=== PATIENT | male | born 1955 | race Caucasian/White ===

== ENCOUNTER 2017-04-01 12:02 | Emergency (ER) | payer MEDICARE, MEDICAID ==
[~2017-04-01] VITALS: Wt 86.0 kg
[~2017-04-01 12:02] MED LIST: BENACAR; CARI350T; CLON-412; DIDN'T BRING MEDS; DUTA0.5C; FLOMAX; HYDR-3612; HYDR-580; OLME20TA20; SERT100T; SIMV20TA2; SOMA; TAMS-14
[2017-04-01] MEDS ORDERED: ONDANSETRON (ODT) 4 MG TAB ODT STA (13:10)
[2017-04-01] MEDS ORDERED: HYDROCODONE/APAP (10/325) TAB PO ONE (13:30)
[2017-04-01] MEDS ORDERED: IBUPROFEN 800 MG TAB PO ONE (13:30)
[2017-04-01] MEDS ORDERED: IBUP800T25 PO (14:07)
[2017-04-01] MEDS ORDERED: HYDR-902 PO (14:07)
--- NOTE | 2017-04-01 14:13 | ERD ---
ER Documentation Chief Complaint Date/Time DATE: 04/01/17 TIME: 14:10 Chief Complaint RIGHT WRIST PAIN X1DAY S/P DOOR HITTING ARM HPI 61-year-old wheelchair dependent male who presents the emergency room with right wrist pain. The patient states that yesterday a door was closed on his right wrist. He had blunt trauma to the ulnar aspect of the right wrist and now has mild swelling and pain. He is right-hand dominant. Pain is moderate and only slightly alleviated with Motrin. ROS All systems reviewed and are negative except as per history of present illness. Medications Home Meds Active Scripts Hydrocodone/Acetaminophen (Boss 10-325 Tablet) 1 Each Tablet, 1 TAB PO Q6H Y for PAIN, #7 TAB Prov:EMELYN MEREDITH MD 04/01/17 Ibuprofen* (Motrin*) 800 Mg Tab, 800 MG PO Q6H Y for PAIN AND OR ELEVATED TEMP, #30 TAB Prov:EMELYN MEREDITH MD 04/01/17 Reported Medications [Didn't Bring Meds ] No Conflict Check 04/05/13 Hydrocodone Bit-Acetaminophen (Boss) 1 Tab Tablet 05/26/10 Carisoprodol* (Soma*) 350 Mg Tablet 05/26/10 Clonazepam* (Klonopin*) 1 Mg Tablet 05/26/10 Simvastatin (Simvastatin) 20 Mg Tablet 05/26/10 Sertraline Hcl* (Zoloft*) 100 Mg Tablet 05/26/10 Dutasteride* (Avodart*) 0.5 Mg Capsule 05/26/10 Tamsulosin Hcl* (Flomax*) 0.4 Mg Cap.sr.24h 05/26/10 Olmesartan Medoxomil (Benicar) 20 Mg Tablet 05/26/10 Clonazepam* (Klonopin*) 1 Mg Tablet 04/12/10 Sertraline Hcl* (Zoloft*) 100 Mg Tablet 04/12/10 Tamsulosin Hcl* (Flomax*) 0.4 Mg Cap.sr.24h 04/12/10 Dutasteride* (Avodart*) 0.5 Mg Capsule 04/12/10 Benacar 04/12/10 Sertraline Hcl* (Zoloft*) 100 Mg Tablet 04/12/10 Flomax 04/12/10 Soma 04/12/10 Hydrocodone Bit-Acetaminophen* (Boss*) 1 Tab Tab 04/12/10 Allergies Allergies: Coded Allergies: Penicillins (Verified Allergy, Severe, anaphylactic shock, 04/05/13) Uncoded Allergies: bee stings (Allergy, Mild, 05/27/10) PMhx/Soc History of Surgery: No (s/p R shoulder sx) Anesthesia Reaction: No Hx Neurological Disorder: No Hx Respiratory Disorders: Yes (COPD) Hx Cardiac Disorders: No Hx Psychiatric Problems: Yes (BIPOLAR) Hx Miscellaneous Medical Probl: Yes (COPD, HTN,OA) Hx Alcohol Use: No Hx Substance Use: No Hx Tobacco Use: No Smoking Status: Never smoker FmHx Family History: No diabetes Physical Exam Vitals Vital Signs Date Time Temp Pulse Resp B/P Pulse Ox O2 Delivery O2 Flow Rate FiO2 04/01/17 12:08 97.7 65 19 108/64 98 Physical Exam General: Well developed, well nourished, no acute distress Head: Normocephalic, atraumatic. Eyes: EOM intact ENT: Moist mucous membranes Neck: Full ROM Respiratory: No respiratory distress Cardiovascular: Good capillary refil Abdominal: Nondistended : Deferred MSK: Mild soft tissue swelling and tenderness to the distal ulna, no snuffbox tenderness. 5 out of 5 hand document reviewer strength, normal pronation and supination, 2+ radial and ulnar pulses. Neurologic: Alert and oriented, moving all extremities, normal speech, steady gait Skin: No rash Psych: Normal mood Results 24 hrs Current Medications Medications (Trade) Dose Ordered Sig/Fuentes Route PRN Reason Start Time Stop Time Status Last Admin Dose Admin Acetaminophen/ Hydrocodone Bitart (Boss ()) 1 tab ONCE ONCE PO 04/01/17 13:30 04/01/17 13:31 DC 04/01/17 13:29 Ondansetron HCl (Zofran Odt) 4 mg ONCE STAT ODT 04/01/17 13:10 04/01/17 13:13 DC 04/01/17 13:29 Ibuprofen (Motrin) 800 mg ONCE ONCE PO 04/01/17 13:30 04/01/17 13:31 DC 04/01/17 13:29 Procedures/MDM EKG, MONITORS, & DIAGNOSTIC IMAGING: X-ray right wrist: I reviewed and interpreted multiple views of the x-ray Bones: Possible subacute fracture of the ulnar styloid, otherwise no acute fractures dislocations or subluxations Soft tissue: No evidence of foreign body X-ray right hand: I reviewed and interpreted multiple views of the x-ray Bones: Possible subacute fracture of the ulnar styloid otherwise no acute fractures dislocations or subluxations Soft tissue: No evidence of foreign body PROCEDURES: Splint Application Note: Splint type: Ulnar gutter, Ortho-Glass, fabricated Extremity: Right wrist Indication: Possible closed ulnar styloid fracture The patient was consented at bedside prior to splint application and states understanding of risks, benefits, and alternatives. The patient was neurovascularly intact prior to and status post application of the splint. The patient tolerated the procedure well and there were no complications. MEDICAL DECISION MAKING: Patient presents with blunt trauma to the right wrist. The patient has tenderness to the distal ulna. X-ray imaging appropriate ER COURSE: X-ray shows possible subacute fracture to the ulnar styloid however given the location of tenderness is there I believe immobilization with outpatient orthopedic follow-up would be most appropriate repletion placed in a splint as documented above. Pain medication provided. I kept the patient and/or family informed of laboratory and diagnostic imaging results throughout the emergency room course. DISPOSITION PLAN: We discussed follow up with the patient's primary care doctor within 24 to 48 hours as needed. We also discussed return to the emergency room for worsening symptoms or worsening condition. Outpatient referral: Orthopedic surgery Discharge Medications: Motrin, Boss We discussed the use of narcotics including avoidance of operating heavy machinery and driving as well as its addictive properties. Departure Diagnosis: Primary Impression: Fracture of right ulnar styloid Encounter type: initial encounter Fracture type: closed Fracture alignment : displaced Qualified Code: S52.611A - Closed displaced fracture of styloid process of right ulna, initial encounter Condition: Stable Patient Instructions: Radius And Ulna Fx, No Reduction Required Referrals: [facility] YOU HAVE RECEIVED A MEDICAL SCREENING EXAM AND THE RESULTS INDICATE THAT YOU DO NOT HAVE A CONDITION THAT REQUIRES URGENT TREATMENT IN THE EMERGENCY DEPARTMENT. FURTHER EVALUATION AND TREATMENT OF YOUR CONDITION CAN WAIT UNTIL YOU ARE SEEN IN YOUR DOCTORS OFFICE WITHIN THE NEXT 1-2 DAYS. IT IS YOUR RESPONSIBILITY TO MAKE AN APPOINTMENT FOR FOLOW-UP CARE. IF YOU HAVE A PRIMARY DOCTOR --you should call your primary doctor and schedule an appointment IF YOU DO NOT HAVE A PRIMARY DOCTOR YOU CAN CALL OUR PHYSICIAN REFERRAL HOTLINE AT IF YOU CAN NOT AFFORD TO SEE A PHYSICIAN YOU CAN CHOSE FROM THE FOLLOWING [facility] [address] [facility] [address] [facility] [address] [facility] [address] [facility] [address] [facility]. [facility] [address] [facility]. [facility] YOU HAVE RECEIVED A MEDICAL SCREENING EXAM AND THE RESULTS INDICATE THAT YOU DO NOT HAVE A CONDITION THAT REQUIRES URGENT TREATMENT IN THE EMERGENCY DEPARTMENT. FURTHER EVALUATION AND TREATMENT OF YOUR CONDITION CAN WAIT UNTIL YOU ARE SEEN IN YOUR DOCTORS OFFICE WITHIN THE NEXT 1-2 DAYS. IT IS YOUR RESPONSIBILITY TO MAKE AN APPOINTMENT FOR FOLOW-UP CARE. IF YOU HAVE A PRIMARY DOCTOR --you should call your primary doctor and schedule and appointment IF YOU DO NOT HAVE A PRIMARY DOCTOR YOU CAN CALL OUR PHYSICIAN REFERRAL HOTLINE AT . IF YOU CAN NOT AFFORD TO SEE A PHYSICIAN YOU CAN CHOSE FROM THE FOLLOWING [facility] INSTITUTIONS: [facility] [address] [place] [address] [facility] [address] [place] [address] [facility] [address] [place] [address] [facility] Care 7 a.m.- 11 p.m. Every Day of the Week NO APPOINTMENT OR AUTHORIZATION NEEDED [facility] Hours: Mon-Fri 9:00 AM - 5:00 PM Additional Instructions: You need to follow-up with an foreclosure specialist. It is possible you have a fracture of the ulnar styloid. EMELYN MEREDITH MD April 01, 2017 14:13
--- NOTE | 2017-04-01 14:41 | RADRPT ---
PROCEDURE: XR Wrist. CLINICAL INDICATION: Right wrist pain TECHNIQUE: 4 views of the right wrist were performed. COMPARISON: No prior studies are available for comparison. FINDINGS: There is a non-acute appearing ununited ulnar styloid fracture. No definite acute fracture is ident ified. Alignment is normal. Joint spaces are preserved. Visualized soft tissues are grossly unremarkable. IMPRESSION: 1. 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 2. No radiographic evidence of acute osseous abnormality. RPTAT: UU .Rocco Simmons MD, MD Date Time Electronically viewed and signed by .Rocco Simmons MD, on 04/01/2017 14:41 .K/
--- NOTE | 2017-04-01 14:42 | RADRPT ---
PROCEDURE: XR hand CLINICAL INDICATION: Right hand pain TECHNIQUE: 3 views of the right hand were performed. COMPARISON: No prior studies are available for comparison. FINDINGS: There is a non-acute appearing ununited ulnar styloid fracture. No definite acute fracture is ident ified. Alignment is normal. Joint spaces are preserved. Visualized soft tissues are grossly unremarkable. IMPRESSION: 1. 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 2. No radiographic evidence of acute osseous abnormality. RPTAT: UU .Rocco Simmons MD, MD Date Time Electronically viewed and signed by .Rocco Simmons MD, on 04/01/2017 14:41 .K/
== END 2017-04-01 14:38 | disposition home or self-care (01) ==
LOC: FTE 12:02
DX: S52.611A Displaced fracture of right ulna styloid process, initial encounter for closed fracture (principal); J44.9 Chronic obstructive pulmonary disease, unspecified; I10 Essential (primary) hypertension; W22.8XXA Striking against or struck by other objects, initial encounter; Y92.9 Unspecified place or not applicable